=== PATIENT | female | born 1995 | race Two or more races ===

== ENCOUNTER 2024-09-27 21:45 | Emergency (ER) | payer MEDICAID, SELFPAY ==
[2024-09-27 22:28] VITALS: BP 115/77; PULSE 76; RESP 18; TEMP 36.7; O2SAT 99; BMI 23.4
--- NOTE | 2024-09-27 22:36 | PD.EDRME ---
Rapid Medical Screening Exam RME Arrival date/time: 09/27/24 21:45 29 yo f present to Ed for c/o of RUQ for 1 day I have greeted and performed a focused initial assessment of this patient. A comprehensive ED assessment and evaluation of the patient, analysis of all test results, and completion of the medical decision making process will be conducted by additional ED providers. Chief Complaint: Abdominal Pain Time Seen by Provider: 09/27/24 21:53 Vital signs: Vital Signs Temperature 98.1 F 09/27/24 22:28 Pulse Rate 76 09/27/24 22:28 Respiratory Rate 18 09/27/24 22:28 Blood Pressure 115/77 09/27/24 22:28 Pulse Oximetry (%) 99 09/27/24 22:28 Oxygen Delivery Method Room Air 09/27/24 22:28
--- NOTE | 2024-09-27 22:37 | XR_ITS ---
Examination: Abdomen sonogram, Limited Date and time of exam: September 27, 2024 1136 hrs. Indications: Right upper abdominal pain beginning 5 hours ago Technique: Real-time vargas scale transabdominal sonographic images of the upper abdomen obtained. Findings: Distended gallbladder No gallstones Gallbladder wall 0.3 cm Common bile duct 0.1 cm Pancreatic head 1.6 cm Liver 14.5 cm no liver lesions Normal hepatopedal portal venous flow Patent IVC Impression: Cholelithiasis, negative for cholecystitis
[2024-09-27 23:25] LABS: Basophils % (Auto) 1 % (0-2.5); Eosinophils # (Auto) 0.3 Thou/mm3 (0.0-0.5); Eosinophils % (Auto) 4 % (0-10); Hematocrit 35.5 % (36.0-46.0); Hemoglobin 12.4 g/dL (12.0-16.0); Immature Granulocytes % (Auto) 0 % (0-0); Immature Granulocytes Auto 0.02 Thou/mm3 (0.00-0.00); Lymphocytes # (Auto) 2.8 Thou/mm3 (1.0-4.8); Lymphocytes % (Auto) 37 % (10-50); Mean Corpuscular HGB Conc 34.9 g/dl (31.0-37.0); Mean Corpuscular Volume 83 fL (80-100); Monocytes # (Auto) 0.6 Thou/mm3 (0.0-0.8); Monocytes % (Auto) 8 % (0-12); Neutrophils # (Auto) 3.7 Thou/mm3 (1.8-7.7); Neutrophils % (Auto) 50 % (37-80); Nucleated Red Blood Cell % 0 /100 WBC (0); Platelet Count 240 Thou/mm3 (140-440); RDW Standard Deviation 37.4 fL (36.4-46.3); Red Blood Count 4.27 Miln/mm3 (4.00-5.20); White Blood Count 7.5 Thou/mm3 (3.6-11.0)
[2024-09-27 23:43] LABS: Alanine Aminotransferase 15 U/L (10-49); Albumin, Serum 4.4 gm/dL (3.5-5.0); Albumin/Globulin Ratio 1.8 (1.2-2.2); Alkaline Phosphatase 39 U/L (46-116); Anion Gap 7 (7-16); Aspartate Amino Transferase 37 U/L (0-34); BUN/Creatinine Ratio 29 Ratio (12-20); Bilirubin,Total 0.3 mg/dL (0.3-1.2); Blood Urea Nitrogen 20 mg/dL (9-23); Calcium 9.5 mg/dL (8.3-10.6); Calcium (Corrected) 9.5 mg/dL (8.5-10.1); Carbon Dioxide 24.7 mMol/L (20.0-31.0); Chloride 111 mMol/L (98-107); Creatinine (Component) 0.7 mg/dL (0.6-1.3); Estimated Creatinine Clearance 85.9 mL/min (>60); Globulin 2.5 gm/dL (2.3-3.5); Glucose 96 mg/dL (74-106); HCG,Qualitative Serum Negative; Lipase 73 U/L (12-53); Osmolality,Calculated 287 (275-295); Potassium 3.8 mMol/L (3.4-5.1); Sodium 143 mMol/L (136-145); Total Protein 6.9 gm/dL (5.7-8.2); eGFR > 60 See Note
[2024-09-27 23:54] LABS: Collection Type, Urine Voided
[2024-09-27 23:58] LABS: Bilirubin,Urine Negative (Negative); Blood,Urine 2+ (Negative); Clarity,Urine Clear (Clear/Hazy); Color,Urine Lt-Yellow (Lt Yel-Yel); Glucose, Urine Negative (Negative); Ketones,Urine Negative (Negative); Leukocyte Esterase,Urine Negative (Negative); Nitrite,Urine Negative (Negative); Protein,Urine Trace (Neg - Trace); RBC,Urine 60 /hpf (0-3); Specific Gravity,Urine 1.039 (1.001-1.035); Squamous Epithelial Cell,Urine < 1 /hpf (0-5); Urobilinogen,Urine Negative mg/dL (0.0-1.0); WBC,Urine 1 /hpf (0-5)
[2024-09-27] MEDS: KETOROLAC INJ 60 MG/2 ML VIAL 30 MG IM (23:59)
--- NOTE | 2024-09-28 00:30 | PD.EDABDPN ---
ED Abdominal Pain RME/HPI General Chief Complaint: Abdominal Pain Stated complaint: RUQ PAIN Time seen by provider: 09/27/24 21:53 Arrival date/time: 09/27/24 21:45 29 year old female present to emergency room with c/o of RUQ pain for 1 day. hx of similar pain but normally goes away. LOCATION: RUQ SEVERITY: Symptoms are described as being severe with limitations on activities of daily living QUALITY: Symptoms are described as being cramping CONTEXT: The patient is unable to identify any inciting events. DURATION/TIMING: The symptoms started approximately one day ago and have been waxing/waning but always present without ever completely resolving. ASSOCIATED SYMPTOMS: The patient is unable to identify any other associated symptoms. MODIFYING FACTORS: The patient is unable to identify any alleviating or aggravating symptoms. PERTINENT ROS: no fevers, no anorexia, no nausea or vomiting, no diarrhea, no ripping or tearing sensations, no syncope or presyncopal symptoms, denies trauma, denies genital pain REVIEW OF SYSTEMS: See History of Present Illness - with the exception of those mentioned in the history of present illness, all other systems reviewed and reported as negative GENERAL: In general the patient is awake, interactive, in an emergency department gurney. HEAD/EYES/EARS/NOSE/THROAT: normo-cephalic, atraumatic, mucus membranes are moist, anicteric, palpebral conjunctiva is pink, trachea is midline. CARDIOVASCULAR: regular rate and regular rhythm, no murmurs, heart sounds are not distant, strong pulses in all four extremities that are equal and symmetric bilateral upper and lower extremities, normal capillary refill. CHEST/PULMONARY: normal chest rise and fall, good air movement, clear to auscultation bilaterally, normal inspiratory to expiratory ratios without evidence of respiratory distress. NECK: No midline/Paraspinal tenderness, no step off ROM/Strenght intact No Kernig and bruzinski sign. No trauma ABDOMEN: soft, RUQ tenderness, no masses appreciated BACK: normal range of motion without pain. NEUROLOGICAL: cranio-facial features are symmetric, moves all four extremities equally without obvious limitations or weakness. EXTREMITY: no tenderness to palpation over the long bones or large joints of the bilateral upper and lower extremities, no joint swelling, no joint erythema, no signs of trauma, no unilateral leg swelling and no peripheral edema. SKIN: warm, dry, well-perfused, no jaundice, no rash, no telangiectasias or petechia. PSYCH: calm, cooperative, no evidence of psychosis or agitation RME / HPI RME / HPI narrative: 09/27/24 21:45 29 yo f present to Ed for c/o of RUQ for 1 day I have greeted and performed a focused initial assessment of this patient. A comprehensive ED assessment and evaluation of the patient, analysis of all test results, and completion of the medical decision making process will be conducted by additional ED providers. Related Data Home Medications ?Medication ?Instructions ?Recorded ?Confirmed prenat.vits,zeenat,zut-pzkb-dnrus 1 tab PO QDAY 09/04/21 10/10/21 Allergies Allergy/AdvReac Type Severity Reaction Status Date / Time No Known Allergies Allergy Verified 10/10/21 22:24 Course Course Course Narrative: This patient presents with abdominal pain, most consistent with acute, uncomplicated biliary colic. Bedside ultrasound demonstrating visible gallstones without overt signs of cholecystitis (thickened GB wall, pericholecystic fluid, CBD dilatation). Patient is afebrile and not jaundiced or altered, lowering my suspicion for cholangitis. Presentation not consistent with acute pancreatitis at this time. Low suspicion for bowel obstruction, viscus perforation, vascular catastrophe, or atypical appendicitis. Presentation not consistent with other acute, emergent causes of abdominal pain at this time. Plan for formal RUQ U/S to evaluate gallbladder pathology. Plan: labs, LFTs, lipase, RUQ U/S, pain control, supportive care, serial reassessment Quality Measures none Orders Category Date Time Status US abdomen limited Stat Exams 09/27/24 22:37 Completed CBC Stat Lab 09/27/24 23:09 Completed CMP [Comprehensive Metabolic Panel] Stat Lab 09/27/24 23:09 Completed HCG,Qualitative Serum Stat Lab 09/27/24 23:09 Completed Lipase Stat Lab 09/27/24 23:09 Completed UA [Urinalysis] Stat Lab 09/27/24 23:29 Completed Urine Culture Stat Lab 09/27/24 23:29 Received Ketorolac Inj [Toradol Inj] Med 09/27/24 22:37 Discontinued 30 mg IM X1 ONE Vital Signs Vital signs: Vital Signs Temperature 98.1 F 09/27/24 22:28 Pulse Rate 76 09/27/24 22:28 Respiratory Rate 18 09/27/24 22:28 Blood Pressure 115/77 09/27/24 22:28 Pulse Oximetry (%) 99 09/27/24 22:28 Oxygen Delivery Method Room Air 09/27/24 22:28 Abdominal Pain MDM Patient data External records reviewed:: [facility] previous records Clinical information provided by:: patient Social determinants that could affect healthcare access:: none Patient has the following chronic illnesses:: n/a How is presenting disease/condition affected by chronic disease/condition?: no chronic disease Evaluation data The following diagnostics were reviewed and interpreted by me:: lab results and radiology exam(s) Lab and/or radiology exams considered but not ordered:: n/a Interpretation Summary: US: Findings: Distended gallbladder No gallstones Gallbladder wall 0.3 cm Common bile duct 0.1 cm Pancreatic head 1.6 cm Liver 14.5 cm no liver lesions Normal hepatopedal portal venous flow Patent IVC Impression: Cholelithiasis, negative for cholecystitis CBC/Cmp/urine wnl Medications / Prescriptions Medications or Prescriptions considered but not ordered:: n/a Medication administrations:: Medication Administration History Discontinued Medications Ketorolac Tromethamine (Ketorolac Inj 60 Mg/2 Ml Vial) 30 mg IM X1 ONE Stop: 09/27/24 22:38 Last Admin: 09/27/24 23:59 Dose: 30 mg Documented By: EE as stated above Consultations Consultation(s) initiated? (list below): No Diagnosis Differential diagnosis abdominal pain: abdominal pain, calculus of kidney, gastroenteritis and other (UTI,) Most likely diagnosis given after review of the tests above:: Gallstone Admission Indicated Admission indicated?: not indicated Admission Request Was there a request for admission?: No Disposition Plan Disposition Plan: Discharge Discharge Attestation Discharge Attestation: The patient and all family members were given an opportunity to ask questions and understood the discharge instructions. Discharge instructions specifically effects, indications for sooner follow up or return to the emergency department, and the expected course of current diagnosis. Patient condition: Stable Discharge Plan Plan Patient Disposition: HOME (Self Care) Health Concerns: Follow with PMD as directed Take tylenol or motrin as need Return to ED if sx worsen Prescriptions/Referrals Prescriptions/Med Rec: No Action Vitamin Tablet 1 tab PO QDAY Referrals: No Primary/Family,Physician [Primary Care Provider] - In 1 week Problem List Clinical Impression: Gallstone Patient/Caregiver Discharge Instructions Education Materials: Treating Gallstones Print Language: Latvian Stand Alone Forms: Rupal Award Info., Patient Portal Info Letter
== END 2024-09-28 01:08 | disposition home or self-care (01) ==
PROVIDERS: Physician Assistant; Emergency Provider Emergency Medicine
DX: K80.20 Calculus of gallbladder without cholecystitis without obstruction (principal)
CPT/HCPCS: 36415; 76705; 80053; 81001; 83690; 84703; 85025; 87086; 96372; 99284; J1885